=== PATIENT | female | born 1955 | race Two or more races ===

== ENCOUNTER 2017-08-18 17:51 | Emergency (ER) | payer SELFPAY ==
[~2017-08-18] VITALS: Ht 147.3 cm; Wt 62.1 kg
[2017-08-18] MEDS ORDERED: PHENAZOPYRIDINE HCL 100 MG TAB PO ONE (19:30)
[2017-08-18] MEDS ORDERED: cefTRIAXone SOD 1,000 MG VL IM ONE (19:30)
[2017-08-18] MEDS ORDERED: cefTRIAXone SOD 1,000 MG VL ONE (19:34)
[2017-08-18] MEDS ORDERED: LIDOCAINE 1% (LOCAL ANESTH.) PF 5ml SDV ONE (19:36)
[2017-08-18] MEDS ORDERED: MEPERIDINE HCL (50 MG/ML) 1 ML VIAL IM ONE (20:45)
[2017-08-18] MEDS ORDERED: ONDANSETRON ODT 4 MG TAB PO ONE (20:45)
[2017-08-18 21:20] VITALS: BP 136/91
== END 2017-08-18 21:38 | disposition home or self-care (01) ==
LOC: ER 18:01
DX: N39.0 Urinary tract infection, site not specified (principal); Z88.6 Allergy status to analgesic agent
CPT/HCPCS: 74018; 96372; 99284; J0696; J2175; Q0162